=== PATIENT | male | born 1980 | race Caucasian/White ===

== ENCOUNTER 2020-01-28 10:04 | Outpatient (CLI) | payer BC, SELFPAY ==
--- NOTE | ~2020-01-28 | CT_ITS ---
EXAMINATION: CT abdomen pelvis wo/w con EXAM DATE: 01/28/2020 10:45 INDICATION: Hematuria. TECHNIQUE: Spiral CT of the abdomen and pelvis was performed without contrast. The patient was then injected with small bolus intravenous Omnipaque 350, followed by delay of approximately 10 minutes to allow collecting system to opacify. A post contrast scan abdomen and pelvis was performed during inj ection of remaining contrast. A total of 130 cc intravenous contrast was administered. The dose-castillo th product (DLP) for this examination was 2269.13 mGy-cm. The exposure was tailored according to pat ient size (auto mA exposure control), and iterative reconstruction (ASIR) was used as additional dose reduction technique. There is no prior study for comparison. FINDINGS: There is no hydronephrosis or nephrolithiasis. The kidneys enhance symmetrically. There a re no suspicious renal lesions. The calyces and opacified portions of ureters are unremarkable, with out filling defects or focal suspicious strictures. The bladder is unremarkable. The prostate is un remarkable. The liver, spleen, adrenal glands and pancreas are unremarkable. Gallbladder is unremarkable. No bi liary obstruction. There is no retroperitoneal or pelvic lymphadenopathy. The appendix is normal. The stomach and small bowel are unremarkable. There is expected amount of c olonic stool. No free intraperitoneal gas. The heart is normal in size. There are no pericardial or pleural effusions. The lung bases are unremarkable. The bones are unremarkable. IMPRESSION: 1. No suspicious genitourinary findings. Reviewed, dictated and finalized at location A.
== END 2020-01-28 10:05 | disposition home or self-care (01) ==
LOC: ANHIMG 10:10
PROVIDERS: PCP Family Medicine; Visit Provider Family Medicine
DX: R31.9 Hematuria, unspecified (principal)
CPT/HCPCS: 74178; Q9967

== ENCOUNTER 2020-02-27 10:31 | Outpatient (CLI) | payer BC, SELFPAY ==
--- NOTE | 2020-02-27 10:46 | EST_ITS ---
Patient Info Name: Devan Freeman Age: 40 years : 1980 Gender: Male Ht: 68 in Wt: 225 lbs BSA: 2.25 m2 Exam Date: 02/27/2020 11:08 AM Exam Location: [facility] Stress Patient Status: Outpatient Admit Date: 02/27/2020 Staff Ordering Physician: Ken Waters MD Attending Provider: Ken Waters MD Exercise Technologist: Francia Tobin RDCS Exercise Physician: Ezio Juárez DO Exam Type: CA stress test treadmill Study Info Indications Z82.49 - Family history of ischemic heart disease and other diseases of the circulatory system A treadmill exercise stress test was performed. Summary 1. 1. Negative [place] exercise stress test for ischemic ST changes by ECG criteria. 2. 2. Good functional capacity, achieving 13.9 METs of workload. 3. 3. Appropriate HR response to exercise. 4. 4. Appropriate HR recovery at 1 minute post exercise. 5. 5. No imaging with stress testing. 6. 6. Patient informed of the above results. Protocol: [place] Stress ECG Details Stage: REST Duration (min): 7 min : 30 sec Speed (mph): 0.0 Grade (%): 0 HR (bpm): 60 SBP (mmHg): 130 DBP (mmHg): 63 METS: --- Stage: REST Duration (min): 9 min : 19 sec Speed (mph): 0.0 Grade (%): 0 HR (bpm): 56 SBP (mmHg): 115 DBP (mmHg): 66 METS: --- Stage: REST Duration (min): 18 min : 30 sec Speed (mph): 0.0 Grade (%): 0 HR (bpm): 58 SBP (mmHg): 115 DBP (mmHg): 66 METS: --- Stage: STAGE 1 Duration (min): 1 min : 0 sec Speed (mph): 1.7 Grade (%): 10 HR (bpm): 89 SBP (mmHg): 115 DBP (mmHg): 66 METS: --- Stage: STAGE 1 Duration (min): 2 min : 0 sec Speed (mph): 1.7 Grade (%): 10 HR (bpm): 88 SBP (mmHg): 115 DBP (mmHg): 66 METS: --- Stage: STAGE 1 Duration (min): 3 min : 0 sec Speed (mph): 1.7 Grade (%): 10 HR (bpm): 91 SBP (mmHg): 162 DBP (mmHg): 67 METS: --- Stage: STAGE 2 Duration (min): 1 min : 0 sec Speed (mph): 2.5 Grade (%): 12 HR (bpm): 100 SBP (mmHg): 162 DBP (mmHg): 67 METS: --- Stage: STAGE 2 Duration (min): 2 min : 0 sec Speed (mph): 2.5 Grade (%): 12 HR (bpm): 102 SBP (mmHg): 141 DBP (mmHg): 60 METS: --- Stage: STAGE 2 Duration (min): 3 min : 0 sec Speed (mph): 2.5 Grade (%): 12 HR (bpm): 99 SBP (mmHg): 141 DBP (mmHg): 60 METS: --- Stage: STAGE 3 Duration (min): 1 min : 0 sec Speed (mph): 3.4 Grade (%): 14 HR (bpm): 111 SBP (mmHg): 135 DBP (mmHg): 47 METS: --- Stage: STAGE 3 Duration (min): 2 min : 0 sec Speed (mph): 3.4 Grade (%): 14 HR (bpm): 123 SBP (mmHg): 135 DBP (mmHg): 47 METS: --- Stage: STAGE 3 Duration (min): 3 min : 0 sec Speed (mph): 3.4 Grade (%): 14 HR (bpm): 126 SBP (mmHg): 155 DBP (mmHg): 59 METS: --- Sta
== END 2020-02-27 10:32 | disposition home or self-care (01) ==
PROVIDERS: PCP Family Medicine; Visit Provider Family Medicine
DX: Z82.49 Family history of ischemic heart disease and other diseases of the circulatory system (principal)
CPT/HCPCS: 93017

== ENCOUNTER → 2021-03-26 00:21 | Outpatient (CLI) | payer BC, SELFPAY ==
[2021-03-26 18:06] LABS: SARS-CoV-2 RNA PCR Positive
== END ==
PROVIDERS: PCP Family Medicine; Visit Provider Internal Medicine Gastroenterology
DX: U07.1 COVID-19 (principal)
CPT/HCPCS: C9803; U0003; U0005

== ENCOUNTER 2021-04-26 00:10 | Day surgery (SDC) | payer BC, SELFPAY ==
[2021-03-16 09:01] VITALS: BMI 31.8
--- NOTE | 2021-04-25 14:05 | P.PNAN_ITS ---
Anes - Initial Pre Proc Eval Procedure: Operation Date: 04/26/21 07:30 Proposed Procedures p Screening Colonoscopy - Colten Razo MD Date/Time: 04/25/21 14:05 Surgeon: Colten Razo MD Pre Op Diagnosis: neoplasm screening Patient Data Age: 41 Gender: M Height: 1.75 m Weight: 97.7 kg Allergies Allergy/AdvReac Type Severity Reaction Status Date / Time Penicillins Allergy Unknown Pt does Verified 04/26/21 06:23 not remember reaction Home Medications Medication Instructions Recorded Confirmed Type No Home Medications 12/15/19 04/26/21 History Patient hx anesthesia problems: none Family hx anesthesia problems: none Results Review: All pre-operative results and documents have been reviewed as part of the pre-operative evaluation. [facility] Past Medical History Medical History (Updated 04/25/21 @ 14:06 by Yony Sanchez MD) Obesity Surgical History Surgical History S/P ACL reconstruction 2019 left leg Family History Family History Father Diabetes mellitus Family history of cardiovascular disease Mother Patient's mother is in good health Social History Social History Smoking status: Never smoker Alcohol intake: never Living arrangements: with family Spiritual care concerns: No Anes - Eval Final PreProcedure Day of Procedure 04/25/21 14:05 Patient weight: obese Heart: regular rate and rhythm Lungs: clear to auscultation and normal air movement Airway: Mallampati scale class II Neurological: alert and oriented Last oral intake: >/= 8 hours ASA classification: II Emergent: no Anesthetic plan: proceed Anesthesia type and monitoring: general GIVS Results Review: All pre-operative results and documents have been reviewed as part of the pre-operative evaluation. Informed Consent: The patient's anesthetic plan and its attendant risks and benefits were discussed with the patient/family/POA. Questions were solicited and answers provided to the satisfaction of the patient/family/POA.
[2021-04-26 06:15] VITALS: BP 106/68; PULSE 64; RESP 18; TEMP 36.5; O2SAT 97; BMI 31.6
[2021-04-26] MEDS: LACTATED RINGERS 1,000 ML 150 ML IV CONT (06:33)
--- NOTE | 2021-04-26 07:25 | WPDGICN ---
Assessment and Plan Assessment and plan (1) Encounter for screening colonoscopy: Code(s): Z12.11 - Encounter for screening for malignant neoplasm of colon Status: Acute Assessment and Plan: Patient presents for screening colonoscopy. Appears to be at average risk for colon polyps. Further recommendations will be given after endoscopy. GI Consult Note Consult date/time: 04/26/21 07:25 HPI: Devan Freeman is a 41 year old male Presents for screening colonoscopy. Patient reports his current weight appetite bowel movements are normal. Patient denies abdominal pain. He has had no bleeding. Family history is noncontributory. 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 Presents today for screening colonoscopy. Review of Systems Review of Systems: All systems reviewed & are unremarkable except as noted in HPI and below PMFSH Past Medical History Medical History (Updated 04/26/21 @ 07:27 by Colten Razo MD) Obesity Surgical History Surgical History S/P ACL reconstruction 2019 left leg Family History Family History Father Diabetes mellitus Family history of cardiovascular disease Mother Patient's mother is in good health Social History Social History Smoking status: Never smoker Alcohol intake: never Living arrangements: with family Spiritual care concerns: No Meds Home Medications and Allergies Home Medications Medication Instructions Recorded Confirmed Type No Home Medications 12/15/19 04/26/21 History Allergies Allergy/AdvReac Type Severity Reaction Status Date / Time Penicillins Allergy Unknown Pt does Verified 04/26/21 06:23 not remember reaction Vital Signs Vital Signs - 24 hr 04/26/21 06:15 Temperature 97.7 F Pulse Rate 64 Respiratory Rate 18 Blood Pressure 106/68 Pulse Oximetry 97 Exam Narrative: Physical exam reveals patient to be alert. Vital signs stable. HEENT exam is unremarkable. Lungs are clear to auscultation and percussion. Heart is without murmur. Abdomen bowel sounds present soft nontender with no hepatosplenomegaly. Digital external rectal exam is normal.
[2021-04-26 07:46] VITALS: BP 100/62; PULSE 62; RESP 15; O2SAT 98
[2021-04-26 07:56] VITALS: BP 97/58; PULSE 64; RESP 18; O2SAT 99
[2021-04-26 08:06] VITALS: BP 104/72; PULSE 57; RESP 16; O2SAT 99
== END 2021-04-26 08:16 | disposition home or self-care (01) ==
PROVIDERS: PCP Family Medicine; Visit Provider Internal Medicine Gastroenterology
PROC: 0DJD8ZZ Inspection of Lower Intestinal Tract, Via Natural or Artificial Opening Endoscopic (ICD-10-PCS; CPT 45378; principal; 2021-04-26 07:30)
DX: Z12.11 Encounter for screening for malignant neoplasm of colon (principal); E66.9 Obesity, unspecified; Z68.31 Body mass index [BMI] 31.0-31.9, adult
CPT/HCPCS: 45378; J2704; J7120

== ENCOUNTER 2022-07-05 10:57 | Outpatient (CLI) | payer BC, SELFPAY ==
[2022-07-05 12:34] LABS: Kit Draw Collected
== END 2022-07-05 10:58 | disposition home or self-care (01) ==
LOC: ANHGOSHLAB 10:59
PROVIDERS: PCP Family Medicine; Visit Provider Family Medicine
DX: Z00.00 Encounter for general adult medical examination without abnormal findings (principal); Z12.5 Encounter for screening for malignant neoplasm of prostate
CPT/HCPCS: 36415

== ENCOUNTER → 2022-07-05 11:08 | Outpatient (CLI) | payer BC, SELFPAY ==
--- NOTE | ~2022-07-05 | XR_ITS ---
Clinical Indication: Occupational exposure to chemicals PA and lateral views of the chest: Comparison: None Findings: The lungs are clear, without evidence of focal consolidation or pleural effusion. Cardiome diastinal silhouette is within normal limits. Bones and soft tissues are unremarkable. Impression: Normal chest. Reviewed, dictated and finalized at [facility]. GIRL Impression: Normal chest.
== END ==
PROVIDERS: PCP Family Medicine; Visit Provider Family Medicine
DX: Z57.9 Occupational exposure to unspecified risk factor (principal)
CPT/HCPCS: 71046